=== PATIENT | male | born 1950 | race Two or more races ===

== ENCOUNTER 2019-01-07 07:12 | Emergency (ER) | payer MEDICARE, MEDICAID ==
[~2019-01-07] VITALS: Ht 170.2 cm; Wt 98.0 kg
[2019-01-07] MEDS ORDERED: ONDANSETRON HCL 4MG/2ML INJ IV STA (07:38)
[2019-01-07] MEDS ORDERED: SODIUM CHLORIDE 0.9% 1,000 ML IV ONE (07:38)
[2019-01-07] MEDS ORDERED: MECLIZINE 25MG TABLET PO ONE (07:45)
[2019-01-07 08:27] LABS: HEMATOCRIT. 41.4 % (42.0-52.0); HEMOGLOBIN. 14.3 g/dL (14.0-18.0); MEAN CORPUSCULAR HEMOGLOBIN 34.3 pg (28.0-32.0); MEAN PLATELET VOLUME 10.2 fl (7.4-10.4); PLATELET 223 x1000/uL (130-400); RED BLOOD CELL COUNT 4.18 mill/uL (4.7-6.1); RED CELL DISTRIBUTION WIDTH 13.4 % (11.6-14.6)
[2019-01-07 08:29] LABS: CHLORIDE 109 mEq/L (98-107)
[2019-01-07 09:16] LABS: PLATELET ESTIMATE NORMAL
[2019-01-07 11:17] VITALS: BP 115/78
== END 2019-01-07 11:18 | disposition home or self-care (01) ==
LOC: ER 08:02
DX: R42 Dizziness and giddiness (principal); E11.9 Type 2 diabetes mellitus without complications; I10 Essential (primary) hypertension; R06.02 Shortness of breath
CPT/HCPCS: 36415; 70450; 71045; 80053; 84484; 85025; 85610; 93005; 96361; 96374; 99284; J2405; J7030; J8597